=== PATIENT | female | born 1965 | race Caucasian/White ===

== ENCOUNTER 2019-04-22 23:53 | Emergency (ER) | payer SELFPAY ==
[~2019-04-22] VITALS: Ht 170.1 cm; Wt 99.8 kg
--- NOTE | ~2019-04-22 | EKG ---
[place], [place] ELECTROCARDIOGRAM REPORT NAME: BRODERICK MOORE UNIT #: [id number] ROOM: DOCTOR: EPIPHANY DRAFT REPORT BIRTHDATE: [birth year] [facility] Test Date: 2019-04-23 Test Time: 00:24:43 Pat Name: BRODERICK MOORE Department: Room: Gender: F Vacuum System Tester: : 1965 Requested By: IMELDA MAE Order Number: [id number] Reading MD: Timbo Granado MD Measurements Intervals [place] Rate: 73 P: 44 RI: 153 QRS: 39 QRSD: 101 T: 87 QT: 433 QTc: 478 Interpretive Statements Sinus rhythm Nonspecific ST and T changes No previous ECG available for comparison Electronically Signed On 04-24-2019 7:57:34 PST by Timbo Granado MD CM:EKGRPT:ELECTROCARDIOGRAM REPORT [id number] IMELDA MAE MD EPIPHANY DRAFT REPORT IMELDA MAE MD
[2019-04-23 00:51] LABS: BASO % 0.4 % (0.0-1.0); EOS % 0.4 % (1.0-4.0); HEMATOCRIT 42.6 % (37.0-47.0); HEMOGLOBIN 13.9 g/dl (12.0-16.0); LYMPH # 1.5 10*3/uL (1.3-4.4); LYMPH % 16.8 % (27.0-41.0); MEAN CELL VOLUME 91.8 fl (81.0-99.0); MEAN CORPUSCULAR HGB CONC 32.6 g/dl (33.0-37.0); MEAN PLATELET VOLUME 10.9 fl (9.6-12.3); MONO # 0.3 10*3/uL (0.1-1.0); MONO % 3.2 % (3.0-9.0); NEUT # 7.1 10*3/uL (2.3-7.9); NEUT % 78.9 % (47.0-73.0); PLATELET COUNT AUTOMATED 261 10*3/uL (130-400); RED BLOOD COUNT 4.64 10*6/uL (4.10-5.10); RED CELL DISTRI WIDTH 13.2 % (0-14.5); WHITE BLOOD COUNT 9.1 10*3/uL (4.8-10.8)
[2019-04-23 00:56] LABS: BILIRUBIN NEGATIVE (NEGATIVE); BLOOD TRACE-LYSED (NEGATIVE); CLARITY CLEAR (CLEAR); COLOR YELLOW (YELLOW); GLUCOSE NEGATIVE (NEGATIVE); KETONE NEGATIVE (NEGATIVE); LEUKO ESTERASE NEGATIVE (NEGATIVE); NITRITE NEGATIVE (NEGATIVE); PH 5.5 (5.0-9.0); SPECIFIC GRAVITY <= 1.005 (1.005-1.030); UROBILINOGEN 0.2 E.U./dl (0.2-1.0)
[2019-04-23 00:59] LABS: ACT PARTIAL THROMBO TIME 26.1 SECONDS (20.0-32.1); INTERNATIONAL NORM RATIO 0.9 (2.0-3.5)
[2019-04-23 01:05] LABS: BACTERIA 1+; WBC 0-2 wbc/hpf (0-5)
[2019-04-23 01:05] LABS: ALBUMIN 3.9 gm/dl (3.1-4.5); BUN 8 mg/dl (7-24); CHLORIDE 108 mmol/L (98-107); CREATININE 0.79 mg/dL (0.55-1.02); LIPASE 511 U/L (73-393); POTASSIUM 3.6 mmol/L (3.5-5.1); SGOT/AST 17 IU/L (3-35); SGPT/ALT 26 U/L (12-78); SODIUM 141 mmol/L (136-145); TOTAL PROTEIN 7.6 gm/dL (6.4-8.2)
[2019-04-23 01:06] LABS: ALKALINE PHOSPHATASE 62 U/L (45-117)
[2019-04-23 01:11] LABS: ACETAMINOPHEN (TYLENOL) < 5.0 ug/ml (10-30); TROPONIN I < 0.015 ng/ml (<0.045)
[2019-04-23 01:12] LABS: URINE AMPHETAMINES < 1000 (1000ng/ml); URINE BARBITURATES < 200 (200ng/ml); URINE BENZODIAZEPINES < 200 (200ng/ml); URINE CANNABINOIDS (THC) < 50 (50ng/ml); URINE COCAINE < 300 (300ng/ml); URINE METHADONE < 300 (300ng/ml); URINE OPIATES < 300 (300ng/ml)
[2019-04-23 01:13] LABS: URINE PHENCYCLIDINE < 25 (25ng/ml)
[2019-04-23] MEDS ORDERED: MACROBID100 M1 PO (01:38)
[2019-04-23] MEDS ORDERED: ZOFRAN4 MG PO (06:50)
== END 2019-04-23 09:09 | disposition home or self-care (01) ==
LOC: ED 23:53
PROVIDERS: Emergency Medicine Emergency Medical Services
DX: F10.129 Alcohol abuse with intoxication, unspecified (principal); R41.82 Altered mental status, unspecified; R11.2 Nausea with vomiting, unspecified; R51 Headache; R79.1 Abnormal coagulation profile; J45.909 Unspecified asthma, uncomplicated; Y90.9 Presence of alcohol in blood, level not specified

== ENCOUNTER → 2019-09-12 | Outpatient (CLI) | payer OTHER ==
[~2019-09-12] MED LIST: MACROBID100 M1 PO; ZOFRAN4 MG PO
== END | disposition home or self-care (01) ==
LOC: CARD 08:15
DX: R00.2 Palpitations (principal)

== ENCOUNTER → 2023-04-02 | Outpatient (CLI) | payer OTHER | END | disposition home or self-care (01) | LOC: CARD 00:45 | PROVIDERS: ATTEND Internal Medicine Cardiovascular Disease | DX: R06.02 Shortness of breath (principal) ==